=== PATIENT | male | born 1950 | race American Indian/Alaskan Native ===

== ENCOUNTER 2021-03-20 20:47 | Emergency (ER) | payer MEDICARE ==
--- NOTE | 2021-03-20 21:13 | Event Note ---
ED Screening Note Date of service: 03/20/21 Time: 21:04 ED Screening Note: 70-year-old -[place] male presents to the emergency room with what appears to be allergic reaction. Patient states he ate shrimp a this afternoon about 2pm. . He started having swelling of his lip and when he coughed he had increased mucus. Denies any headache, sob but does admit to nausea. This initial assessment/diagnostic orders/clinical plan/treatment(s) is/are subject to change based on patients health status, clinical progression and re- assessment by fellow clinical providers in the ED. Further treatment and workup at subsequent clinical providers discretion. Patient/guardian urged not to elope from the ED as their condition may be serious if not clinically assessed and managed. Initial orders include:
[2021-03-20] MEDS ORDERED: FAMOTIDINE 20 MG/2 ML INJ IV ONE (22:09)
[2021-03-20] MEDS ORDERED: methylPREDNISolone Sod Succinate 125 MG/2 ML INJ IV ONE (22:09)
[2021-03-20] MEDS ORDERED: diphenhydrAMINE 50 MG/ML VIAL IV ONE (22:09)
[2021-03-20] MEDS ORDERED: EPINEPHrine/PF 1 MG/1 ML INJ IV ONE (22:10)
--- NOTE | 2021-03-20 22:14 | Emergency Department Report ---
ED General Adult HPI - General Chief complaint: Allergic Reaction Stated complaint: ALLERGIC REACTION Time Seen by Provider: 03/20/21 21:42 Source: patient, EMS Mode of arrival: Wheelchair Limitations: No Limitations - History of Present Illness Initial comments: 70-year-old male patient presents to the emergency department with complaints of an allergic reaction. Patient states he ate shrimp approximately 8 hours ago and his lower lip began to swell afterwards. States he has never experienced an allergic reaction to any type of food before. He did not take any Benadryl prior to arrival. Swelling is localized to the lower lip. States he has been experiencing difficulty swallowing for the last few hours. Denies shortness of breath, wheezing, rash, syncope, skin color changes. Denies all other complaints at this time. - Related Data Previous Rx's Medication Instructions Recorded Last Taken Type EPINEPHrine [Epipen] 0.3 mg IJ PRN #1 auto.injct 03/21/21 Unknown Rx Famotidine [Pepcid] 20 mg PO BID 5 Days tablet 03/21/21 Unknown Rx predniSONE [Deltasone] 40 mg PO QDAY 5 Days tab 03/21/21 Unknown Rx Allergies Allergy/AdvReac Type Severity Reaction Status Date / Time No Known Allergies Allergy Unverified 03/20/21 21:19 ED Review of Systems ROS: Stated complaint: ALLERGIC REACTION Other details as noted in HPI Other: GENERAL: Negative for fever, chills, weight change, anorexia, fatigue. ENT: Positive for angioedema. CARDIOVASCULAR: Negative for chest pain, palpitations, lower extremity swelling. PULMONARY: Negative for cough, dyspnea, wheezing, orthopnea, cyanosis. GASTROINTESTINAL: Negative for abdominal pain, nausea, vomiting, diarrhea, constipation. MUSCULOSKELETAL: Negative for joint pain, joint swelling, myalgias, back pain, neck pain. NEUROLOGICAL: Negative for headache, seizure, syncope, paresthesias, weakness. INTEGUMENTARY: Negative for erythema, rash, diaphoresis, laceration, ecchymosis. HEMATOLOGICAL: Negative for hemoptysis, hematemesis, hematochezia, hematuria. PSYCHIATRIC: Negative for hallucinations, suicidal ideation, homicidal ideation, anxiety, depression. ED Past Medical Hx - Past Medical History Previous Medical History?: Yes Additional medical history: glaucoma - Social History Smoking Status: Never Smoker Substance Use Type: None - Medications Home Medications: Home Medications Medication Instructions Recorded Confirmed Last Taken Type EPINEPHrine [Epipen] 0.3 mg IJ PRN #1 auto.injct 03/21/21 Unknown Rx Famotidine [Pepcid] 20 mg PO BID 5 Days tablet 03/21/21 Unknown Rx predniSONE [Deltasone] 40 mg PO QDAY 5 Days tab 03/21/21 Unknown Rx ED Physical Exam - General Limitations: No Limitations - Other Other exam information: General: Awake and alert. No acute distress. Head: Atraumatic, normocephalic. Eyes: EOMI. Pupils are equal and round. Normal sclera and conjunctiva. ENT: Oral mucosa is moist. Uvula appears edematous. Angioedema of the lower lip present. The tongue is not swollen. Patient's voice is not hoarse. He is handling secretions without difficulty. Patient is not sitting in a tripod position. Neck: Supple. No lymphadenopathy. No JVD. Pulmonary: No respiratory distress. Clear to auscultation bilaterally. No wheezing or stridor. Cardiac: Regular rate and rhythm. Pulses are palpable and equal bilaterally. No lower extremity cyanosis or edema. Skin: Warm and dry. No rashes. Abdomen: Soft, non-tender, non-protuberant. No guarding, rigidity, or rebound. Bowel sounds are normal. No organomegaly or masses noted. Back: Normal alignment. No CVA tenderness. Extremities: Symmetrical. Full range of motion intact. Neurological: Alert and oriented, appropriately interactive, no focal deficits. Psych: Cooperative. Appropriate mood and affect. Speech is evenly metered. Thoughts are logically construed. ED Course Vital Signs 03/20/21 03/20/21 03/20/21 21:13 22:17 22:30 Temperature 98.8 F Pulse Rate 80 79 73 Respiratory 18 19 18 Rate Blood Pressure 160/106 140/82 O2 Sat by Pulse 98 Oximetry 03/20/21 22:46 Temperature Pulse Rate 66 Respiratory 21 Rate Blood Pressure 140/82 O2 Sat by Pulse Oximetry ED Medical Decision Making - Medical Decision Making Patient presents emergency department with complaints of lip swelling several hours after eating shrimp. On arrival, his vital signs are stable. No hypoxia, no respiratory distress, no voice changes. Swelling of the uvula and lips noted on examination. Due to concern for airway compromise, patient was placed on a cardiac cath lab technologist and epinephrine was administered in addition to glucocorticoids and histamine blockers. On reevaluation, patient remains stable and symptoms have improved. Repeat cardiopulmonary exam within normal limits. Airway remains patent. Edema of the uvula has resolved. Patient will be discharged home with prescription for steroids and histamine blockers following a period of observation in the emergency department after receiving epinephrine to ensure rebound symptoms do not occur. Emphasized the importance of carrying an EpiPen with him at all times. Patient expressed understanding and is agreeable to plan of care. Strict return precautions provided. Repeat exam is unremarkable and benign. History, exam, diagnostic testing, and current condition do not suggest worrisome pathology to warrant further testing, continued ED treatment, admission, or surgical evaluation at this point. Given the low probability of a significant medical illness, it would be more likely to result in harm than benefit to perform further testing at this stage. Discussed findings, presumptive diagnosis, need for follow-up and specific signs/symptoms that should prompt immediate return to the emergency department. Instructions were explained in detail to the patient in addition to giving written discharge information. Patient expressed understanding and was given the opportunity to ask questions, all of which were satisfactorily answered prior to discharge home. Critical care attestation.: If time is entered above; I have spent that time in minutes in the direct care of this critically ill patient, excluding procedure time. ED Disposition Clinical Impression: Acute allergic reaction Qualifiers: Encounter type: initial encounter Qualified Code(s): T78.40XA - Allergy, unspecified, initial encounter Disposition: TO HOME OR SELFCARE Is pt being admited?: No Does the pt Need Aspirin: No Condition: Stable Instructions: How to Use an Auto-Injector Pen Additional Instructions: Carry an EpiPen with you at all times. Take prednisone with food as directed. Take Pepcid as directed. Take Benadryl as directed. Follow-up with your primary care provider this week. Call tomorrow to schedule an appointment. Return to the emergency department immediately for new or worsening symptoms. Specifically, return to the emergency department immediately for difficulty breathing, wheezing, rash, loss of consciousness, skin color changes, or any other concerns. Prescriptions: predniSONE [Deltasone] 40 mg PO QDAY 5 Days tab EPINEPHrine [Epipen] 0.3 mg IJ PRN #1 auto.injct Famotidine [Pepcid] 20 mg PO BID 5 Days tablet Referrals: PRIMARY CARE, [Primary Care Provider] - 3-5 Days Time of Disposition: 02:00
[2021-03-21 03:07] VITALS: BP 127/86
== END 2021-03-21 02:05 | disposition home or self-care (01) ==
LOC: ED 20:47
DX: T78.40XA Allergy, unspecified, initial encounter (principal); Z79.899 Other long term (current) drug therapy; X58.XXXA Exposure to other specified factors, initial encounter
CPT/HCPCS: 96374; 96375; 99283; J0171; J1200; J2930